=== PATIENT | male | born 1955 | race Caucasian/White ===

== ENCOUNTER → 2018-03-06 | Outpatient (CLI) | payer MEDICARE ==
[~2018-03-06] MED LIST: ALB0.5 INH; ALBU2TAB PO; ALBU8.5H12 IH; BENA40TA53 PO; BUPR1TAB34 SL; BUPR2TAB PO; FLU60SYR30 IM ONLY; GAB100 PO; KET10 PO; MELO-150 PO; MU-V1TAB9 PO; PER PO; TRAZ100T31 PO; TRAZ50TA34 PO; VAR05PT PO; VARE1TAB4 PO; ZINC50TA2 PO; [UNRECOGNIZED DRUG - CODE] PO; [UNRECOGNIZED DRUG - CODE] SL
[2018-03-06 11:34] LABS: PLATELET COUNT, AUTOMATED 203 K/uL (150-450)
[2018-03-06 12:03] LABS: LDL CHOLESTEROL 169 mg/dl
== END ==
LOC: LAB 11:15
PROVIDERS: ATTEND Internal Medicine
DX: Z00.00 Encounter for general adult medical examination without abnormal findings (principal); I10 Essential (primary) hypertension; M10.9 Gout, unspecified
CPT/HCPCS: 36415; 81001; 84443; 84550; 85025; G0103; 82040; 82247; 82310; 82374; 82435; 82465; 82565; 82947; 83718; 84075; 84132; 84153; 84155; 84295; 84450; 84460; 84478; 84520